=== PATIENT | male | born 1975 | race Caucasian/White ===

== ENCOUNTER 2018-03-17 17:24 | Emergency (ER) | payer OTHER ==
[~2018-03-17] VITALS: Ht 172.7 cm; Wt 68.0 kg
[~2018-03-17 17:24] MED LIST: ACETAMINOPHEN-1 EAC1 PO; ALBUTEROL INHAL17 GM IH; ALBUTEROL2.5 MG/0.1; BACTRIM DS TAB1 EACH PO; CLEOCIN HCL150 MG PO; ERYTHROMYCIN250 MG PO; FLAGYL500 MG PO; HYDROCODONE-AP1 EAC6 PO; IBUPROFEN 800800 M1 PO; KEFLEX500 MG PO; NAPROSYN500 MG PO; NOHOMEMEDICATIONS; NORCO 5-325 TA1 EACH PO; PROVENTIL IH; PROVENTIL IN; VICODIN 5-5001 EACH PO
[2018-03-17 17:29] VITALS: BP 152/108
[2018-03-17] MEDS ORDERED: VENTOLIN HFA 1818 GM INH (17:31)
[2018-03-17] MEDS ORDERED: BACTROBAN CREAM30 G1 TOP (17:43)
[2018-03-17] MEDS ORDERED: KEFLEX500 M1 PO (17:43)
[2018-03-17] MEDS ORDERED: ACETAMINOPHEN-1 EAC1 PO (17:43)
[2018-03-17] MEDS ORDERED: BACTRIM DS TAB1 EACH PO (17:43)
== END 2018-03-17 17:54 | disposition home or self-care (01) ==
LOC: M.ERS 17:24
DX: L03.211 Cellulitis of face (principal); L01.00 Impetigo, unspecified; Z88.0 Allergy status to penicillin; J45.909 Unspecified asthma, uncomplicated

== ENCOUNTER 2020-08-17 18:40 | Emergency (ER) | payer OTHER ==
[~2020-08-17] VITALS: Ht 172.7 cm; Wt 68.0 kg
[~2020-08-17 18:40] MED LIST changes: +BACTROBAN CREAM30 G1 TOP; +KEFLEX500 M1 PO; +VENTOLIN HFA 1818 GM INH
[2020-08-17] MEDS ORDERED: CLINDAMYCIN HC300 MG PO (20:52)
[2020-08-17] MEDS ORDERED: NORCO 5-325 TA1 EAC2 PO (20:52)
[2020-08-17 21:05] VITALS: BP 150/97
== END 2020-08-17 21:05 | disposition home or self-care (01) ==
LOC: M.ERS 18:40
DX: K04.7 Periapical abscess without sinus (principal); J45.909 Unspecified asthma, uncomplicated; Z88.0 Allergy status to penicillin; Z90.89 Acquired absence of other organs

== ENCOUNTER 2020-10-09 22:54 | Emergency (ER) | payer OTHER ==
[~2020-10-09] VITALS: Ht 172.7 cm; Wt 65.8 kg
[~2020-10-09 22:54] MED LIST changes: +CLINDAMYCIN HC300 MG PO; +NORCO 5-325 TA1 EAC2 PO
[2020-10-09 23:57] LABS: ABSOLUTE EOSINOPHILS 0.2 thou/uL (0.0-0.7); ABSOLUTE LYMPHOCYTES 1.4 thou/uL (0.8-5.3); ABSOLUTE MONOCYTES 0.4 thou/uL (0.0-1.2); ABSOLUTE NEUTROPHILS 5.8 thou/uL (1.6-8.1); BASOPHILS 0.5 %; EOSINOPHILS 1.9 %; HEMOGLOBIN 16.8 gm/dL (14.0-18.0); MCH 30.4 pg (26.0-34.0); MCHC 34.9 g/dL (28.0-37.0); MCV 86.9 fL (80.0-100.0); MONOCYTES 5.5 %; MPV 9.1 fl. (7.2-11.1); NUCLEATED RBCS 0 /100WBC; PLATELET COUNT* 251 thou/uL (150-400); POLYS 74.1 %; RBC 5.52 mil/uL (4.50-6.00); RDW-CV 13.1 % (10.5-14.5); WBC 7.9 thou/uL (4.0-11.0)
[2020-10-10 00:15] LABS: ALBUMIN 3.7 g/dL (3.4-5.0); CALCIUM 8.9 mg/dL (8.5-10.1); CREATININE 0.8 mg/dL (0.6-1.3); POTASSIUM 4.2 mmol/L (3.5-5.1); TOTAL BILIRUBIN 0.5 mg/dL (<0.1-1.0); TOTAL PROTEIN 7.3 g/dL (6.4-8.2)
[2020-10-10] MEDS ORDERED: ZOFRAN ODT4 MG DISSOLVE (00:27)
[2020-10-10] MEDS ORDERED: MECLIZINE HCL25 M1 PO (00:27)
[2020-10-10 00:38] VITALS: BP 150/101
--- NOTE | 2020-10-10 12:23 | EKG ---
[place] [address] ELECTROCARDIOGRAM REPORT Name: VINAY WALDROP Room: [facility]#: [id number] Admission: 10/09/20 Attend Phys: Discharge: 10/10/20 Date of : 73 Date of Service: 10/09/202331 Report #: [id number] THIS REPORT FOR: //name// [facility] ED Test Date: 2020-10-09 Test Time: 23:32:33 Pat Name: VINAY WALDROP Department: Room: Gender: Internal Carver: [place] : 1975 Requested By: Gera Beckford Order Number: [id number] MD: Abundio Blair Measurements Intervals Lucien Rate: 65 P: 68 MO: 145 QRS: 66 QRSD: 97 T: 64 QT: 445 QTc: 463 Interpretive Statements Sinus rhythm Probable left atrial enlargement No previous ECG available for comparison Electronically Signed On 10-10-2020 12:23:14 MANDOLIN REPAIRER by Abundio Blair [email or web address] <ELECTRONICALLY SIGNED> By: Abundio Blair MD, [facility] 10/10/20 122 31 31 Abundio Blair MD, FACC /EPI
== END 2020-10-10 00:38 | disposition home or self-care (01) ==
LOC: M.ERS 22:54
PROVIDERS: Emergency Medicine Emergency Medical Services
DX: R42 Dizziness and giddiness (principal); Z20.828 Contact with and (suspected) exposure to other viral communicable diseases; J45.909 Unspecified asthma, uncomplicated; Z88.0 Allergy status to penicillin; Z90.89 Acquired absence of other organs

== ENCOUNTER 2021-04-08 16:59 | Emergency (ER) | payer OTHER ==
[~2021-04-08] VITALS: Ht 172.7 cm; Wt 68.0 kg
[~2021-04-08 16:59] MED LIST changes: +MECLIZINE HCL25 M1 PO; +ZOFRAN ODT4 MG DISSOLVE
[2021-04-08] MEDS ORDERED: PROVENTIL HFA6.7 G1 INH (17:10)
[2021-04-08] MEDS ORDERED: APAP W/CODEINE1 TA2 PO (17:25)
[2021-04-08] MEDS ORDERED: LIDOCAINE VISC100 ML SWISH&SPIT (17:25)
[2021-04-08] MEDS ORDERED: CLEOCIN HCL150 MG PO (17:25)
[2021-04-08 17:27] VITALS: BP 167/110
== END 2021-04-08 17:27 | disposition home or self-care (01) ==
LOC: M.ERS 16:59
DX: K04.7 Periapical abscess without sinus (principal); J45.909 Unspecified asthma, uncomplicated; Z88.0 Allergy status to penicillin; Z90.89 Acquired absence of other organs

== ENCOUNTER 2021-10-19 06:49 | Emergency (ER) | payer OTHER ==
[~2021-10-19 06:49] MED LIST changes: +APAP W/CODEINE1 TA2 PO; +LIDOCAINE VISC100 ML SWISH&SPIT; +PROVENTIL HFA6.7 G1 INH
== END 2021-10-19 08:05 | disposition left against medical advice (07) ==
LOC: M.ERS 06:49
DX: R10.9 Unspecified abdominal pain (principal); Z53.21 Procedure and treatment not carried out due to patient leaving prior to being seen by health care provider